=== PATIENT | female | born 1960 | race Caucasian/White ===

== ENCOUNTER → 2017-06-20 | Outpatient (CLI) | payer OTHER ==
[~2017-06-20] MED LIST: GLYB5TAB8 PO; LISI-729 PO; METF750T PO; MULT-506 PO
== END | disposition home or self-care (01) ==
LOC: C.CPL 14:00
PROVIDERS: ATTEND Orthopaedic Surgery
DX: Z01.810 Encounter for preprocedural cardiovascular examination (principal)

== ENCOUNTER → 2017-11-28 | Outpatient (CLI) | payer OTHER ==
[2017-11-28 13:32] LABS: BASO % 0.4 %; BASO ABS # 0.03 K/uL (0-0.2); EOS % 1.6 %; EOS ABS # 0.13 K/uL (0-0.5); HEMATOCRIT 40.6 % (37-47); HEMOGLOBIN 14.2 g/dL (12.0-16.0); IG# 0.02 K/uL (0.00-0.02); LYMPH % 40.4 %; LYMPH ABS # 3.21 K/uL (1.2-3.4); MEAN CELL VOLUME 82.7 fL (80-100); MEAN CORPUSCULAR HEMOGLOBIN 28.9 pg (25-34); MEAN PLATELET VOLUME 9.6 fL (7.4-10.4); MONO % 4.9 %; MONO ABS # 0.39 K/uL (0.11-0.59); NEUT % 52.4 %; NEUT ABS # 4.17 K/uL (1.4-6.5); PLATELET COUNT 227 K/uL (130-400); RED CELL DISTRIBUTION WIDTH CV 12.4 % (11.5-14.5); RED CELL DISTRIBUTION WIDTH SD 37.2 fL (36.4-46.3); WHITE BLOOD COUNT 7.95 K/uL (4.8-10.8)
[2017-11-28 13:47] LABS: ALBUMIN 3.9 gm/dl (3.4-5.0); ALT/SGPT 24 U/L (12-78); AST/SGOT 10 U/L (15-37); BLOOD UREA NITROGEN 13 mg/dl (7-18); CALCIUM 9.6 mg/dl (8.5-10.1); CARBON DIOXIDE 29 mmol/L (21-32); CHOLESTEROL 194 mg/dl (0-200); CREATININE 1.03 mg/dl (0.60-1.20); GLUCOSE 172 mg/dl (70-99); POTASSIUM 4.5 mmol/L (3.5-5.1); SODIUM 133 mmol/L (136-145)
[2017-11-28 13:49] LABS: ALKALINE PHOSPHATASE 112 U/L (45-117); LDL CHOLESTEROL CALCULATED 71 mg/dl; TOTAL PROTEIN 7.7 gm/dl (6.4-8.2)
[2017-11-28 14:50] LABS: HEMOGLOBIN A1C 8.3 % (4.5-5.6)
== END | disposition home or self-care (01) ==
LOC: C.LABSPEC 12:43
PROVIDERS: ATTEND Family Medicine
DX: Z00.00 Encounter for general adult medical examination without abnormal findings (principal); E11.9 Type 2 diabetes mellitus without complications

== ENCOUNTER 2018-01-04 16:08 | Emergency (ER) | payer OTHER ==
[~2018-01-04] VITALS: Ht 170.2 cm; Wt 83.1 kg
[2018-01-04 16:21] VITALS: Ht 170.2 cm; Wt 83.1 kg
[2018-01-04 17:04] LABS: INFLUENZA B ANTIGEN POS for Influ B (NEG)
[2018-01-04] MEDS ORDERED: KETOROLAC TROMETHAMINE 30 MG/ML VIAL IV STA (18:11)
[2018-01-04] MEDS ORDERED: SODIUM CHLORIDE 0.9% 1000ML 1,000 ML IV STA (18:11)
[2018-01-04] MEDS ORDERED: ALBUTEROL 0.083% NEBU SOLN 3 ML VIAL INH STA (18:13)
[2018-01-04] MEDS ORDERED: DIPH1LIQ PO (18:23)
[2018-01-04] MEDS ORDERED: MUCINEX PO (18:23)
[2018-01-04] MEDS ORDERED: DEXT1LIQ58 PO (18:23)
[2018-01-04] MEDS ORDERED: GLYB5TAB8 PO (18:23)
[2018-01-04] MEDS ORDERED: ACET-1256 PO (18:23)
[2018-01-04] MEDS ORDERED: IBUP-103 PO (18:23)
--- NOTE | 2018-01-04 18:35 | EMERGENCY ROOM VISIT NOTE ---
History First contact with patient: 17:56 Chief Complaint: FLU LIKE SX Stated Complaint: FLU, HEADACHE History of Present Illness The patient is a 57 year old female who presents to the Emergency Room with complaints of cough, chills, runny nose, vomiting, diarrhea, headache, and body aches 4 days. The patient states her symptoms began Monday with just a cough. On Monday, she was feeling fine, however in the evening she began experience and chills. Monday, she went to work in the morning when she experienced sudden onset of vomiting and diarrhea. She states she has been taking DayQuil, NyQuil, and Mucinex for her symptoms without significant relief. Today, the patient states her head feels very full, describes her headache like a banging sensation. She states body aches, runny nose or severe, and her cough continues to be present. She is having difficulty sleeping due to the symptoms and the cough. She denies any difficulty breathing, chest pain, abdominal pain , constipation, sore throat, or other concerning symptoms. She did not get an influenza vaccination this year. Review of Systems A complete 10 point review of systems was reviewed with the patient with pertinent positives and negatives as per history of present illness. All else were negative. Past Medical/Surgical History Surgical Problems: (1) S/P cholecystectomy Diabetes Family History Cancer Diabetes mellitus Gallbladder disease Heart disease Hypertension Kidney disease Kidney stones Lung disease Seizures Social History Smoking Status: Never Smoker Alcohol Use: none Marital Status: Housing Status: lives with significant other Occupation Status: employed Current/Historical Medications Scheduled Diphenhydramine-Phenylephrine- (Theraflu Expressmax 12.5-5-325 mg/15Ml), 1 DOSE PO PRN UD Glyburide (Micronase), 5 MG PO QPM Glyburide (Micronase), 10 MG PO QAM Lisinopril (Zestril), 5 MG PO QAM Metformin Hcl (Glucophage Er), 1 TAB PO BID Multivitamin (Multivitamin), 1 TAB PO QAM Scheduled PRN Acetaminophen (Tylenol), 1,000 MG PO Q6 PRN for Pain or Fever Albuterol Hfa (Ventolin Hfa), 2 PUFFS INH QID PRN for Cough Benzonatate (Tessalon Perles), 200 MG PO TID PRN for Cough Dextromethorphan-Phenylephrine (Vicks Dayquil Cold & Flu), 1 DOSE PO Q4 PRN for FLU Ibuprofen Tab (Advil), 400 MG PO Q6 PRN for Pain or Fever [Mucinex], 1 TAB PO BID PRN for CONGESTION Physical Exam Vital Signs Date Time Temp Pulse Resp B/P (MAP) Pulse Ox O2 Delivery O2 Flow Rate FiO2 01/04/18 20:59 89 20 108/74 94 Room Air 01/04/18 19:43 101 18 130/74 94 Room Air 01/04/18 18:49 95 20 121/75 99 Room Air 01/04/18 16:21 36.9 109 20 130/86 96 Room Air Physical Exam VITALS: Vitals are noted on the nurse's note and reviewed by myself. Vital signs stable. GENERAL: This is a 57-year-old white female, in no acute distress, nondiaphoretic, well-developed well-nourished. SKIN: The skin was without rashes, erythema, edema, or bruising. There is no tenting of the skin. Capillary reflex less than 2 seconds. HEAD: Normocephalic atraumatic. EARS: External auditory canals clear, tympanic membranes pearly riley without erythema or effusion bilaterally. EYES: Pupils equal round and reactive to light and accommodation. Conjunctivae without injection, sclerae without icterus. Extraocular movements intact. NOSE: Patent, turbinates without inflammation. Clear rhinorrhea noted. No sinus tenderness. MOUTH: Mucous membranes moist. Tonsils are not enlarged. Pharynx without erythema or exudate. Uvula midline. Airway patent. Tongue does not deviate. NECK: Supple without nuchal rigidity. No lymphadenopathy. No thyromegaly. Cervical spine is nontender. No JVD. HEART: Regular rate and rhythm without murmurs gallops or rubs. LUNGS: Mild wheezing diffusely. No dullness to percussion. No retractions or accessory muscle use. ABDOMEN: Positive bowel sounds x 4. Normal tympanic percussion. Soft, nontender, without masses or organomegaly. Leija sign negative. No guarding or rebound tenderness. MUSCULOSKELETAL: No muscle atrophy, erythema, or edema noted. Full range of motion without joint tenderness in all extremities. No tenderness to palpation. Normal gait. Strength 5/5 throughout. NEURO: Patient was alert and oriented to person place and time. Normal sensation to light and sharp touch. Deep tendon reflexes 2+ throughout. No focal neurological deficits. Medical Decision & Procedures ER Provider Diagnostic Interpretation: CHEST ONE VIEW PORTABLE CLINICAL HISTORY: cough dyspnea COMPARISON STUDY: 02/08/2016 FINDINGS: The bones soft tissues and hemidiaphragms are normal. The cardiomediastinal silhouette is normal. The lungs are clear. The pulmonary vasculature is normal. IMPRESSION: Negative chest. The above report was generated using voice recognition software. It may contain grammatical, syntax or spelling errors. Electronically signed by: Ren Handley M.D. 01/04/2018 6:37 PM Dictated Date/Time: 01/04/2018 6:37 PM Laboratory Results 01/04/18 18:24 Red Blood Count 5.04, Mean Corpuscular Volume 82.1, Mean Corpuscular Hemoglobin 28.8, Mean Corpuscular Hemoglobin Concent 35.0, Mean Platelet Volume 8.8, Neutrophils (%) (Auto) 49.3, Lymphocytes (%) (Auto) 38.4, Monocytes (%) (Auto) 11.0, Eosinophils (%) (Auto) 1.1, Basophils (%) (Auto) 0.2, Neutrophils # (Auto ) 2.15, Lymphocytes # (Auto) 1.68, Monocytes # (Auto) 0.48, Eosinophils # (Auto ) 0.05, Basophils # (Auto) 0.01 01/04/18 18:24 Test 01/04/18 16:27 01/04/18 18:24 Influenza Type A Antigen Neg for Influ A (NEG) Influenza Type B Antigen POS for Influ B (NEG) White Blood Count 4.37 K/uL (4.8-10.8) Red Blood Count 5.04 M/uL (4.2-5.4) Hemoglobin 14.5 g/dL (12.0-16.0) Hematocrit 41.4 % (37-47) Mean Corpuscular Volume 82.1 fL (80-100) Mean Corpuscular Hemoglobin 28.8 pg (25-34) Mean Corpuscular Hemoglobin Concent 35.0 g/dl (32-36) Platelet Count 161 K/uL (130-400) Mean Platelet Volume 8.8 fL (7.4-10.4) Neutrophils (%) (Auto) 49.3 % Lymphocytes (%) (Auto) 38.4 % Monocytes (%) (Auto) 11.0 % Eosinophils (%) (Auto) 1.1 % Basophils (%) (Auto) 0.2 % Neutrophils # (Auto) 2.15 K/uL (1.4-6.5) Lymphocytes # (Auto) 1.68 K/uL (1.2-3.4) Monocytes # (Auto) 0.48 K/uL (0.11-0.59) Eosinophils # (Auto) 0.05 K/uL (0-0.5) Basophils # (Auto) 0.01 K/uL (0-0.2) RDW Standard Deviation 38.6 fL (36.4-46.3) RDW Coefficient of Variation 12.9 % (11.5-14.5) Immature Granulocyte % (Auto) 0.0 % Immature Granulocyte # (Auto) 0.00 K/uL (0.00-0.02) Anion Gap 7.0 mmol/L (3-11) Est Creatinine Clear Calc Drug Dose 77.3 ml/min Estimated GFR () 83.4 Estimated GFR (Non- 71.9 BUN/Creatinine Ratio 10.8 (10-20) Calcium Level 9.0 mg/dl (8.5-10.1) Total Bilirubin 0.4 mg/dl (0.2-1) Direct Bilirubin 0.1 mg/dl (0-0.2) Aspartate Amino Transf (AST/SGOT) 22 U/L (15-37) Alanine Aminotransferase (ALT/SGPT) 31 U/L (12-78) Alkaline Phosphatase 91 U/L (45-117) Total Protein 8.0 gm/dl (6.4-8.2) Albumin 3.9 gm/dl (3.4-5.0) Lipase 194 U/L (73-393) Medications Administered Medications (Trade) Dose Ordered Sig/Jillian Route Start Time Stop Time Status Last Admin Dose Admin Sodium Chloride 1,000 ml @ 999 mls/hr Q1H1M STAT IV 01/04/18 18:11 01/04/18 19:11 DC 01/04/18 18:11 999 MLS/HR Ketorolac Tromethamine (Toradol Inj) 30 mg NOW STAT IV 01/04/18 18:11 01/04/18 18:13 DC 01/04/18 18:11 30 MG Albuterol Sulfate (Ventolin 0.083% 2.5MG/3ML Neb) 2.5 mg NOW STAT INH 01/04/18 18:13 01/04/18 18:14 DC 01/04/18 18:13 2.5 MG Miscellaneous Medication (Gi Cocktail) 24 ml NOW STAT PO 01/04/18 19:27 01/04/18 19:29 DC 01/04/18 19:41 24 ML Lidocaine HCl (Viscous Lidocaine 2% Soln) 20 ml STK-MED ONCE .ROUTE 01/04/18 19:38 01/04/18 19:39 DC 01/04/18 19:41 20 ML Al Hydroxide/Mg Hydroxide (Maalox Susp) 30 ml STK-MED ONCE .ROUTE 01/04/18 19:38 01/04/18 19:39 DC 01/04/18 19:41 30 ML ED Course The patient was seen and evaluated as above. IV access obtained, labs drawn. The patient was given 1 L normal saline solution and an albuterol nebulizer treatment. Chest x-ray performed and reviewed by myself and radiologist as above. The patient is now complaining of epigastric burning and pain. Lipase and liver profile ordered. All labs reviewed by myself. The patient is given a GI cocktail. Her symptoms did improve. I discussed all results of testing with the patient at bedside. All questions were answered to the patient's satisfaction. Discharge instructions reviewed, the patient was discharged home in good condition. Medical Decision This is a 57-year-old female patient presents to the emergency department complaining of cough and other flulike symptoms. The patient did test positive for influenza B. She does have a history of diabetes, so further workup was initiated to rule out other concerning infectious causes. The patient's CBC is without leukocytosis, anemia, thrombocytopenia. PRP was without renal or electrolyte abnormalities. Liver profile was normal and lipase testing was normal. Patient's chest x-ray did not show any evidence for pneumonia or bronchitis. The patient's epigastric burning did improve with a GI cocktail. I suspect the burning she is experiencing in her abdomen is related to the nausea, vomiting, and retching she has been doing. She has not been able to tolerate food well, and is having difficulty keeping liquids down. The patient did feel better prior to discharge after albuterol nebulizer and fluids. She will be given a albuterol inhaler to use at home to help with her symptoms. The patient was in agreement with the assessment and plan at this time. She was encouraged to stay home and avoid being in public until she is feeling much better, or at least approximately 1 week. All questions were answered to the patient's satisfaction. Differential diagnosis includes influenza, bronchitis, pneumonia, acute coronary syndrome, pulmonary embolism, upper respiratory infection, tracheobronchitis, acute sinusitis, gastroenteritis, pancreatitis, malignancy, and others Medication Reconcilliation Current Medication List: was personally reviewed by me Blood Pressure Screening Patient's blood pressure: Normal blood pressure Impression Primary Impression: Influenza B Departure Information Dispostion Home / Self-Care Condition GOOD Prescriptions Benzonatate (Tessalon Perles) 200 Mg Cap 200 MG PO TID Y for Cough, #30 CAP Prov: Shirin Barton PA-C 01/04/18 Albuterol Hfa (VENTOLIN HFA) 200 Puffs/16791 Mcg Aers 2 PUFFS INH QID Y for Cough, #1 INHALER Prov: Shirin Barton PA-C 01/04/18 Referrals [facility] Patient Instructions ED Flu, My [facility] Additional Instructions You were seen and evaluated in the emergency department today for a cough and URI symptoms. You were diagnosed with Influenza B, which is a virus. As discussed, antibiotics will not treat viral illness. You have been provided with an albuterol inhaler to use for wheezing or difficulty breathing. Use this inhaler 1-2 puffs every 4-6 hours as needed. If you find that your symptoms are not improving with the use of the inhaler, or if you find that you need to use the inhaler longer than 1 week, return to the ED or follow-up with your PCP. You have been given benzonatate (Tessalon Pearles) to be used for coughing. These should be taken 1 capsule up to 3 times per day as needed for coughing. Do not take this medication more than prescribed. You may use this medication in addition to OTC cough medications. For your sore throat, you may use a 1:1 mixture of liquid Benadryl and liquid Maalox. Gargle and spit this mixture. It will help to soothe the throat and provide some relief. Drink warm tea with honey and lemon, as this will also help to soothe the throat. Gargle with salt water frequently. As discussed, you should take OTC Mucinex and/or Sudafed for your symptoms. Please do not exceed the recommended daily dosages. Ibuprofen(Motrin, Advil) may be used for fever or pain. Use 600mg every six hours as needed. Take with food. Avoid using more than 2400mg in a 24 hour period. Do not use 2400mg per day for more than three consecutive days without physician direction. Prolonged inappropriate use can lead to stomach upset or ulcers. (AND/OR) Acetaminophen(Tylenol) may be used for fever or pain. Use 1000mg every six hours as needed. Avoid using more than 3000mg in a 24 hour period. For congestion, you may use Flonase OTC. You may want to consider zinc, echinacea, and vitamin C to help boost your immunity. Please get plenty of rest and drink plenty of fluids. Please return or follow-up with your PCP in 1 week if you are not experiencing any improvement in your symptoms. Return to the emergency department for coughing up blood, difficulty breathing, chest pain, worsening symptoms, or for other concerns. Work Instructions Return To Work: 1 week
[2018-01-04 18:39] LABS: BASO % 0.2 %; BASO ABS # 0.01 K/uL (0-0.2); EOS % 1.1 %; EOS ABS # 0.05 K/uL (0-0.5); HEMATOCRIT 41.4 % (37-47); HEMOGLOBIN 14.5 g/dL (12.0-16.0); LYMPH % 38.4 %; LYMPH ABS # 1.68 K/uL (1.2-3.4); MEAN CELL VOLUME 82.1 fL (80-100); MEAN CORPUSCULAR HEMOGLOBIN 28.8 pg (25-34); MEAN PLATELET VOLUME 8.8 fL (7.4-10.4); MONO ABS # 0.48 K/uL (0.11-0.59); NEUT % 49.3 %; NEUT ABS # 2.15 K/uL (1.4-6.5); PLATELET COUNT 161 K/uL (130-400); RED CELL DISTRIBUTION WIDTH CV 12.9 % (11.5-14.5); RED CELL DISTRIBUTION WIDTH SD 38.6 fL (36.4-46.3); WHITE BLOOD COUNT 4.37 K/uL (4.8-10.8)
--- NOTE | 2018-01-04 18:39 | DIAGNOSTIC IMAGING REPORT ---
CHEST ONE VIEW PORTABLE CLINICAL HISTORY: cough dyspnea COMPARISON STUDY: 02/08/2016 FINDINGS: The bones soft tissues and hemidiaphragms are normal. The cardiomediastinal silhouette is normal. The lungs are clear. The pulmonary vasculature is normal. IMPRESSION: Negative chest. The above report was generated using voice recognition software. It may contain grammatical, syntax or spelling errors. Electronically signed by: Ren Handley M.D. 01/04/2018 6:37 PM Dictated Date/Time: 01/04/2018 6:37 PM
[2018-01-04 18:56] LABS: CREATININE 0.89 mg/dl (0.60-1.20)
[2018-01-04] MEDS ORDERED: GI COCKTAIL PO STA (19:27)
[2018-01-04] MEDS ORDERED: ALUMINUM/MAGNESIUM SUSP 30 ML UDC ONE (19:38)
[2018-01-04] MEDS ORDERED: LIDOCAINE HCL 2% VISC SOLN 20 ML UDC ONE (19:38)
[2018-01-04 20:31] LABS: ALBUMIN 3.9 gm/dl (3.4-5.0)
[2018-01-04] MEDS ORDERED: VNTHFA/IN INH (20:57)
[2018-01-04] MEDS ORDERED: BENZ1CAP90 PO (20:57)
[2018-01-04 21:10] VITALS: BP 108/74; PULSE 89; TEMP 36.9; O2SAT 94
== END 2018-01-04 21:11 | disposition home or self-care (01) ==
LOC: C.EDB 16:09 → C.EDD 21:11
DX: J10.1 Influenza due to other identified influenza virus with other respiratory manifestations (principal); E11.9 Type 2 diabetes mellitus without complications; Z80.9 Family history of malignant neoplasm, unspecified; Z83.3 Family history of diabetes mellitus; Z83.79 Family history of other diseases of the digestive system; Z82.49 Family history of ischemic heart disease and other diseases of the circulatory system; Z84.1 Family history of disorders of kidney and ureter; Z83.6 Family history of other diseases of the respiratory system; Z79.899 Other long term (current) drug therapy